=== PATIENT | male | born 1970 | race Two or more races ===

== ENCOUNTER 2023-03-09 16:24 | Emergency (ER) | payer OTHER ==
[~2023-03-09] VITALS: Ht 175.3 cm; Wt 81.6 kg
[~2023-03-09 16:24] MED LIST: AMBIEN10 MG PO; CLONAZEPAM2 MG PO; GABAPE PO; LIPOFEN150 MG PO; RISPERDAL1 MG PO; ZESTRIL10 M1 PO; ZOLOFT100 MG PO
[2023-03-09] MEDS ORDERED: ZESTRIL10 M1 (16:57)
[2023-03-09 18:05] LABS: HEMATOCRIT 38.7 % (39.0-48.0); HEMOGLOBIN 13.1 g/dL (13-16.00); MEAN CELL VOLUME 82.9 fL (80.0-100.00); MEAN CORPUSCULAR HEMOGLOBIN 27.9 pg (27.00-32.0); MEAN CORPUSCULAR HGB CONC 33.7 g/dl (32.0-36.0); PLATELET COUNT 240 K/uL (150-450); RED BLOOD COUNT 4.67 M/uL (4.00-6.00)
[2023-03-09 18:16] LABS: URINE APPEARANCE Clear; URINE BILIRRUBIN Negative (NEGATIVE); URINE BLOOD Negative; URINE COLOR Yellow; URINE GLUCOSE Negative (NEGATIVE); URINE LEUKOCYTE Negative; URINE NITRATE Negative; URINE PROTEIN Negative (NEGATIVE)
[2023-03-09 18:17] LABS: URINE BACTERIA 7.5 uL (0.0-1933)
[2023-03-09 18:18] LABS: URINE RBC 0.4 uL (0.0-20.8)
[2023-03-09 18:19] LABS: URINE EPITHELIAL CELLS 0.3 uL (0.0-38.8); URINE WBC 1.6 uL (0.0-23.2)
[2023-03-09 18:20] LABS: INR 1.02; PARTIAL THROMBOPLASTIN TIME 26.7 SECONDS (22.0-34.0); PROTHROMBIN TIME 10.7 SECONDS (9.0-11.5)
[2023-03-09 18:28] LABS: BILIRUBIN TOTAL 0.44 mg/dL (0.3-1.2); CALCIUM 9.2 mg/dL (8.5-10.1); CREATININE SERUM 0.9 mg/dL (0.70-1.30); GFR 88.27; GLOBULINA 3.8 G/DL (2.4-3.5); POTASSIUM 3.89 mEq/L (3.5-5.1); TOTAL PROTEIN 7.8 gm/dL (6.4-8.2)
== END 2023-03-09 22:32 | disposition home or self-care (01) ==
LOC: ER 16:24
PROVIDERS: Nurse Practitioner Family
DX: K57.32 Diverticulitis of large intestine without perforation or abscess without bleeding (principal); R10.32 Left lower quadrant pain; Z88.2 Allergy status to sulfonamides; F41.8 Other specified anxiety disorders; I10 Essential (primary) hypertension
CPT/HCPCS: 36415; 74177; 96365; 96366; 96372; 99284; J2250; J3490; J7042; Q9965

== ENCOUNTER 2023-05-21 09:45 | Inpatient (IN) | payer OTHER ==
[~2023-05-21] VITALS: Ht 185.4 cm; Wt 97.5 kg
[~2023-05-21 09:45] MED LIST changes: +ZESTRIL10 M1
[2023-05-29 07:21] LABS: HEMATOCRIT 39.7 % (39.0-48.0); HEMOGLOBIN 13.7 g/dL (13-16.00); MEAN CELL VOLUME 81.5 fL (80.0-100.00); MEAN CORPUSCULAR HEMOGLOBIN 28.1 pg (27.00-32.0); MEAN CORPUSCULAR HGB CONC 34.4 g/dl (32.0-36.0); PLATELET COUNT 229 K/uL (150-450); RED BLOOD COUNT 4.87 M/uL (4.00-6.00); RED CELL DISTRIBUTION WIDTH 14.2 % (11.5-14.5)
[2023-05-29 07:36] LABS: ALBUMIN 3.3 gm/dL (3.4-5.0); CREATININE SERUM 0.7 mg/dL (0.70-1.30); GFR 117.97; PHOSPHOROUS 4.5 mg/dL (2.5-4.9); POTASSIUM 4.44 mEq/L (3.5-5.1)
[2023-05-31 06:42] LABS: HEMATOCRIT 40.2 % (39.0-48.0); HEMOGLOBIN 13.9 g/dL (13-16.00); MEAN CELL VOLUME 82.5 fL (80.0-100.00); MEAN CORPUSCULAR HEMOGLOBIN 28.5 pg (27.00-32.0); MEAN CORPUSCULAR HGB CONC 34.6 g/dl (32.0-36.0); PLATELET COUNT 215 K/uL (150-450); RED BLOOD COUNT 4.87 M/uL (4.00-6.00); RED CELL DISTRIBUTION WIDTH 14.1 % (11.5-14.5)
[2023-05-31 06:53] LABS: CALCIUM 8.9 mg/dL (8.5-10.1); CREATININE SERUM 0.78 mg/dL (0.70-1.30); GFR 104.12; POTASSIUM 4.09 mEq/L (3.5-5.1)
[2023-05-31] MEDS ORDERED: HYOSCYAMINE0.125 M1 SL (10:43)
[2023-05-31] MEDS ORDERED: INTESTINEX680 M1 PO (10:43)
[2023-05-31] MEDS ORDERED: NEURONTIN300 MG PO (10:48)
[2023-05-31] MEDS ORDERED: TRAM1TAB98 PO (10:49)
== END 2023-05-31 13:49 | disposition home or self-care (01) | DRG 331 ==
LOC: O/R 05-28 05:00 → SURG 05-28 09:45 → SURH 05-28 15:49
PROVIDERS: Internal Medicine; ADMIT Surgery; ATTEND Surgery
PROC: 0DBP4ZZ Excision of Rectum, Percutaneous Endoscopic Approach (ICD-10-PCS; 2023-05-28)
PROC: 0DJD8ZZ Inspection of Lower Intestinal Tract, Via Natural or Artificial Opening Endoscopic (ICD-10-PCS; 2023-05-28)
PROC: 0DTN4ZZ Resection of Sigmoid Colon, Percutaneous Endoscopic Approach (ICD-10-PCS; principal; 2023-05-28 10:15)
DX: K57.30 Diverticulosis of large intestine without perforation or abscess without bleeding (principal); R10.32 Left lower quadrant pain; R19.4 Change in bowel habit; K64.8 Other hemorrhoids; I10 Essential (primary) hypertension; F32.89 Other specified depressive episodes